=== PATIENT | female | born 1950 | race Caucasian/White ===

== ENCOUNTER 2016-10-03 15:15 | Emergency (ER) | payer OTHER ==
--- NOTE | 2016-10-03 15:23 | PDOC ---
History of Present Illness - General History Source: Patient, Old Records Exam Limitations: No Limitations - History of Present Illness Initial Comments: 10/03/16 16:18 Chief Complaint: Right ankle pain History of present illness: The patient is a 66 year old female, who presents to the emergency department with right ankle pain after falling down a flight of stairs. She notes that she landed on her ankle, twisting it. She reports that the pain ranges from mild to moderate, without radiation. She also reports that the pain is exacerbated when ambulating but is able to ambulate with assistance. She states that she is currently on a blood thinner. She denies head trauma or loss of consciousness. Past medical history: Thyroid disease Allergies: monosodium glutamate, levaquin, avelox Past surgical history: None reported Social history: No alcohol, tobacco or drug use reported PMD - Dr. Leodan Ledbetter <Urban Hall - Last Filed: 10/03/16 16:18> <Malachi Lenz - Last Filed: 10/03/16 17:01> - General Chief Complaint: Injury Stated Complaint: RT ANKLE PAIN Time Seen by Provider: 10/03/16 15:23 Past History <Urban Hall - Last Filed: 10/03/16 16:18> - Past Medical History Thyroid Disease: Yes (HASHIMOTOS) - Immunization History Immunization Up to Date: No - Psycho/Social/Smoking Cessation Hx Anxiety: No Suicidal Ideation: No Smoking Status: No Smoking History: Never smoked Number of Cigarettes Smoked Daily: 0 Hx Alcohol Use: No Substance Use Type: None <Malachi Lenz - Last Filed: 10/03/16 17:01> - Past Medical History Allergies/Adverse Reactions: Allergies Allergy/AdvReac Type Severity Reaction Status Date / Time levofloxacin [From Levaquin] Allergy Verified 10/03/16 15:20 monosodium glutamate Allergy Hives Verified 10/03/16 15:20 moxifloxacin HCl Allergy Verified 10/03/16 15:20 [From Avelox] Home Medications: Ambulatory Orders Levothyroxine Sodium [Unithroid] 75 mcg PO DAILY 10/03/16 Warfarin Sodium [Jantoven] 2.5 mg PO DAILY 10/03/16 Review of Systems - Review of Systems Able to Perform ROS?: Yes Comments:: 10/03/16 16:19 CONSTITUTIONAL: Absent: fever, no chills, no fatigue EYES: Absent: visual changes EXTREMITIES: Present: Right ankle pain. MUSKULOSKELETAL: Absent: back pain, no arthralgia, no myalgia SKIN: Absent: rash NEURO: Absent: headache <Urban Hall - Last Filed: 10/03/16 16:18> *Physical Exam - Vital Signs Last Vital Signs Temp Pulse Resp BP Pulse Ox 97.8 F 66 18 127/50 99 10/03/16 15:15 10/03/16 15:15 10/03/16 15:15 10/03/16 15:15 10/03/16 15:15 - Physical Exam Comments: 10/03/16 16:19 GENERAL: Well-appearing, well-nourished. No apparent distress. HEENT: Normocephalic, atraumatic. PERRL, EOM intact. ABDOMEN: Soft, non-distended, non-tender. EXTREMITIES: +Tenderness in lateral malleolus, neurovascularly intact, range of motion intact. 4/5 strength due to pain of the right ankle. No ecchymosis noted. No gross deformities. SKIN: Warm, dry. No rash NEUROLOGICAL: No focal neurological deficits. <Urban Hall - Last Filed: 10/03/16 16:18> ED Treatment Course - RADIOLOGY Radiograph Interpretation: 10/03/16 16:19 Right ankle x-ray Reviewed by: Impression: Avulsion/fracture at the tip of the malleolus of indeterminate age. <Urban Hall - Last Filed: 10/03/16 16:18> Medical Decision Making - Medical Decision Making 10/03/16 17:00 X-ray reveals a slight irregularity of both the medial and lateral malleoli. These appear to be old avulsions, but a new avulsion cannot be excluded. Dread wrap applied, Aircast applied for ambulation. Patient was more comfortable after treatment, no distal numbness tingling pain or weakness, good pulses, and good capillary refill. Ambulating adequately. Rest ice and elevation recommended and follow up with orthopedist if pain or swelling persists. <Malachi Lenz - Last Filed: 02/16/17 17:01> *DC/Admit/Observation/Transfer - Attestations Scribe Attestion: 10/03/16 16:19 Documentation prepared by Urban Hall, acting as medical social consultant for Malachi Florentino MD <Urban Hall - Last Filed: 10/03/16 16:18> - Discharge Dispostion Admit: No <Malachi Lenz - Last Filed: 10/03/16 17:01> Diagnosis at time of Disposition: Avulsion fracture of ankle Qualifiers: Encounter type: initial encounter Fracture type: closed Laterality: right Qualified Code(s): S82.891A - Other fracture of right lower leg, initial encounter for closed fracture - Discharge Dispostion Condition at time of disposition: Stable - Referrals Referrals: Reggie Pizano MD [Staff Physician] - 1 week - Patient Instructions Printed Discharge Instructions: DI for Ankle Fracture, How to Apply an Dread Wrap Additional Instructions: Your x-ray shows a possible small chip fracture of the outside of your ankle. Alternately, this may be only a sprain, and this x-ray abnormality may be due to an old injury. The treatment is the same however with rest ice elevation and splinting. If pain persists you should see an orthopedist in one week for further care
[2016-10-03 15:27] VITALS: BP 127/50; PULSE 66; TEMP 97.8; BMI 27.6
== END 2016-10-03 16:25 | disposition home or self-care (01) ==
LOC: FER 15:15
PROC: 2W3QX1Z Immobilization of Right Lower Leg using Splint (ICD-10-PCS; principal; 2016-10-03)
DX: S82.891A Other fracture of right lower leg, initial encounter for closed fracture (principal); W10.9XXA Fall (on) (from) unspecified stairs and steps, initial encounter; Y93.89 Activity, other specified; Y92.9 Unspecified place or not applicable; E06.3 Autoimmune thyroiditis
CPT/HCPCS: 73610-TC-RT; 99283-25

== ENCOUNTER 2021-09-26 14:15 | Observation (INO) | payer OTHER ==
[2021-09-26 14:25] VITALS: BMI 25.8
[2021-09-26 15:58] LABS: ALBUMIN 3.7 g/dl (3.4-5.0); CALCIUM 9.8 mg/dl (8.5-10); CREATININE 0.7 mg/dl (0.55-1.3); TOT PROT 6.5 g/dl (6.4-8.2)
[2021-09-26 16:57] LABS: BASO % 0.1 % (0-2.0); HEMATOCRIT 40.1 % (32.4-45.2); HEMOGLOBIN 13.3 GM/dL (10.7-15.3); LYMPH % 15.2 % (8-40); MCH 27.5 pg (25.7-33.7); MCHC 33.1 g/dl (32.0-36.0); MEAN CELL VOLUME 82.9 fl (80-96); MEAN PLT VOLUME 9.7 fl (7.5-11.1); MONO % 8.6 % (3.8-10.2); NEUT % 76.1 % (42.8-82.8); PLATELET COUNT 223 10^3/uL (134-434); RBC 4.84 M/mm3 (3.60-5.2); RDW 13.3 % (11.6-15.6); WHITE BLOOD COUNT 7.9 K/mm3 (4.0-10.0)
[2021-09-26] MEDS ORDERED: METOPROLOL TARTRATE 5 MG/5 ML VIAL IVPUSH ONE (17:03)
[2021-09-26] MEDS ORDERED: METOPROLOL TARTRATE 5 MG/5 ML VIAL ONE (17:07)
[2021-09-26 17:46] LABS: INR 2.99 (0.83-1.09); PROTHROMBIN TIME (PATIENT) 34.8 SEC (9.7-13.0)
[2021-09-26] MEDS ORDERED: METOPROLOL TARTRATE 25 MG TABLET (FP) PO SCH (22:00)
[2021-09-27] MEDS: METOPROLOL TARTRATE 25 MG TABLET (FP) PO SCH ×2 (01:26→10:49)
[2021-09-27] MEDS ORDERED: LEVOTHYROXINE NA 75 MCG TABLET (FP) PO SCH (07:00)
[2021-09-27 08:03] LABS: CALCIUM 9.1 mg/dL (8.5-10.1)
[2021-09-27 08:04] LABS: BLOOD UREA NITROGEN 18.2 mg/dL (7-18)
[2021-09-27 08:07] LABS: CREATININE 0.7 mg/dL (0.55-1.3)
[2021-09-27 10:53] VITALS: PULSE 94
[2021-09-27 14:06] VITALS: BP 101/63; TEMP 98.2
[2021-09-27] MEDS ORDERED: WARFARIN NA 2.5 MG TABLET PO SCH (18:00)
== END 2021-09-27 19:17 | disposition home or self-care (01) ==
LOC: FER 14:15 → FM/S 18:04
PROVIDERS: ADMIT Internal Medicine; ATTEND Nurse Practitioner Acute Care
DX: I48.20 Chronic atrial fibrillation, unspecified (principal); R00.2 Palpitations; Z79.01 Long term (current) use of anticoagulants; R25.1 Tremor, unspecified; R42 Dizziness and giddiness; Z88.8 Allergy status to other drugs, medicaments and biological substances; Z86.39 Personal history of other endocrine, nutritional and metabolic disease; E03.9 Hypothyroidism, unspecified
CPT/HCPCS: 36415; 71045-TC-FY; 80048; 80053; 83735; 84443; 84484; 85025; 85610; 85730; 86850; 86900; 86901; 93005; 93306-TC; 99285-25; C9803; G0378; U0003; U0005

== ENCOUNTER 2021-10-20 13:27 | Emergency (ER) | payer OTHER ==
[2021-10-20 13:34] VITALS: BMI 25.8
[2021-10-20 14:49] LABS: INR 2.92 (0.83-1.09)
[2021-10-20 14:57] LABS: ALBUMIN 3.7 g/dl (3.4-5.0); BILIRUBIN,TOTAL 1.2 mg/dl (0.2-1); CALCIUM 9.4 mg/dl (8.5-10); CREATININE 0.8 mg/dl (0.55-1.3); MAGNESIUM 1.7 mg/dL (1.8-2.4); TOT PROT 6.6 g/dl (6.4-8.2)
[2021-10-20] MEDS ORDERED: MAGNESIUM OXIDE 400 MG TABLET (FP) PO ONE (15:05)
[2021-10-20 15:38] LABS: HEMATOCRIT 40.9 % (32.4-45.2); HEMOGLOBIN 13.9 GM/dL (10.7-15.3); LYMPH % 15.9 % (8-40); MCH 28.1 pg (25.7-33.7); MCHC 34.1 g/dl (32.0-36.0); MEAN CELL VOLUME 82.4 fl (80-96); MONO % 9.3 % (3.8-10.2); NEUT % 74.8 % (42.8-82.8); PLATELET COUNT 193 10^3/uL (134-434); RBC 4.96 M/mm3 (3.60-5.2); RDW 13.4 % (11.6-15.6); WHITE BLOOD COUNT 7.3 K/mm3 (4.0-10.0)
[2021-10-20 17:58] VITALS: BP 127/77; PULSE 90; TEMP 98.6
== END 2021-10-20 19:22 | disposition home or self-care (01) ==
LOC: FER 13:27
DX: R00.2 Palpitations (principal)
CPT/HCPCS: 36415; 71046-TC-FY; 80053; 83735; 84439; 84443; 84484; 85025; 85610; 93005; 99285-25